=== PATIENT | female | born 1995 | race American Indian/Alaskan Native ===

== ENCOUNTER 2019-08-16 08:04 | Emergency (ER) | payer OTHER ==
[2019-08-16 09:03] LABS: Basophils % (Auto) 0.4 % (0.0-1.8); Eosinophils # (Auto) 0.1 K/mm3 (0.0-0.4); Eosinophils % (Auto) 1.3 % (0.0-4.3); Hematocrit 40.2 % (30.3-42.9); Hemoglobin 13.7 gm/dl (10.1-14.3); Lymphocytes # (Auto) 1.5 K/mm3 (1.2-5.4); Lymphocytes % (Auto) 19.9 % (13.4-35.0); Mean Corpuscular HGB Conc 34 % (30-34); Mean Corpuscular Volume 89 fl (79-97); Monocytes # (Auto) 0.4 K/mm3 (0.0-0.8); Monocytes % (Auto) 5.3 % (0.0-7.3); Platelet Count 279 K/mm3 (140-440); Red Blood Count 4.55 M/mm3 (3.65-5.03); Red Cell Distribution Width 15.5 % (13.2-15.2)
[2019-08-16 09:28] LABS: BUN/Creatinine Ratio 10; Blood Urea Nitrogen 9 mg/dL (7-17); Calcium 9.9 mg/dL (8.4-10.2); Hemolysis Index 22
[2019-08-16] MEDS ORDERED: LIDOCAINE (1%) 10 MG/1 ML VIAL 20 ML MDV INFILTRATI ONE ×2 (09:42→10:10)
--- NOTE | 2019-08-16 09:46 | Emergency Department Report ---
ED Fever HPI - General Chief Complaint: Headache Stated Complaint: MIGRANE/FEVER/CHILLS/EYES WATERY Time Seen by Provider: 08/16/19 09:35 Source: patient Exam Limitations: no limitations - History of Present Illness Initial Comments: Nesha is a 23 yo female with hx of meningitis who presents with fever, chills, headache, neck pain, back pain for 3 days. She has photophobia, severe 10/10 headache. Global throbbing headache. Pain is worse with she bends over. 1-2 years ago, she was diagnosed with meningitis at hospital in [place]. Denies cough or chest pain. Timing/Duration: other (3 days) Associated Symptoms: headache, other (Neck pain) ED Review of Systems ROS: Stated complaint: MIGRANE/FEVER/CHILLS/EYES WATERY Other details as noted in HPI Comment: All other systems reviewed and negative Constitutional: chills, fever, malaise Respiratory: denies: cough, shortness of breath Neurological: headache ED Past Medical Hx - Past Medical History Previous Medical History?: Yes Additional medical history: Hx of meningitis - Surgical History Past Surgical History?: No - Social History Smoking Status: Never Smoker Substance Use Type: Marijuana - Medications Home Medications: Home Medications Medication Instructions Recorded Confirmed Last Taken Type HYDROcodone/APAP 5-325 [[place] 1 each PO Q6HR PRN #10 tablet 08/16/19 Unknown Rx 5/325] Ibuprofen [Motrin 800 MG tab] 800 mg PO Q8HR PRN #15 tablet 08/16/19 Unknown Rx ED Physical Exam - General Limitations: No Limitations General appearance: alert, in no apparent distress, other (Squinting due to photophobia, she moves her neck briskly fluidly while talking) - Head Head exam: Present: atraumatic, normocephalic - Eye Eye exam: Present: normal appearance - ENT ENT exam: Present: mucous membranes moist - Neck Neck exam: Present: normal inspection, full ROM. Absent: tenderness, meningismus - Respiratory Respiratory exam: Present: normal lung sounds bilaterally, chest wall tenderness. Absent: respiratory distress, wheezes, rales, rhonchi - Cardiovascular Cardiovascular Exam: Present: regular rate, normal rhythm, normal heart sounds. Absent: systolic murmur, diastolic murmur, rubs, gallop - GI/Abdominal GI/Abdominal exam: Present: soft, normal bowel sounds. Absent: distended, tenderness, guarding, rebound - Extremities Exam Extremities exam: Present: normal inspection - Neurological Exam Neurological exam: Present: alert, oriented X3 - Psychiatric Psychiatric exam: Present: normal affect, normal mood - Skin Skin exam: Present: warm, dry, intact, normal color. Absent: rash ED Course Vital Signs 08/16/19 08/16/19 08/16/19 08:23 09:30 09:45 Temperature 100.5 F H Pulse Rate 117 H 94 H 90 Respiratory 18 13 23 Rate Blood Pressure 118/75 122/83 O2 Sat by Pulse 100 99 93 Oximetry 08/16/19 08/16/19 08/16/19 10:00 10:16 10:46 Temperature Pulse Rate 91 H 100 H Respiratory 15 22 23 Rate Blood Pressure 131/86 131/86 123/91 O2 Sat by Pulse 92 99 96 Oximetry - Lumbar Puncture Consent Obtained: written consent Time Out Performed: Yes Indication for Procedure: headache, fever work up Patient Position: Sitting Upright/Leaning F Skin Prep: Povidone-Iodine 1% Local Anesthetic Used: Lidocaine 1% Amount of anesthesia used (mls): 25 Spinal Needle Gauge: 20G Spinal Needle Length: 3.5in Interspace Used: L3-L4 Fluid Initially Obtained: clear Complications: none Patient Tolerated Procedure: well ED Medical Decision Making - Lab Data Result diagrams: 08/16/19 08:26 08/16/19 08:26 Laboratory Results - last 24 hr 08/16/19 08/16/19 08/16/19 08:26 08:26 08:26 WBC 7.7 RBC 4.55 Hgb 13.7 Hct 40.2 MCV 89 MCH 30 MCHC 34 RDW 15.5 H Plt Count 279 Lymph % (Auto) 19.9 [place] % (Auto) 5.3 Eos % (Auto) 1.3 Baso % (Auto) 0.4 Lymph # 1.5 [place] # 0.4 Eos # 0.1 Baso # 0.0 Seg Neutrophils % 73.1 H Seg Neutrophils # 5.6 Sodium 135 L Potassium 4.1 Chloride 98.7 Carbon Dioxide 19 L Anion Gap 21 BUN 9 Creatinine 0.9 Estimated GFR > 60 BUN/Creatinine Ratio 10 Glucose 129 H Calcium 9.9 HCG, Qual Negative CSF Appearance CSF Color CSF WBC CSF RBC CSF Seg Neutrophils CSF Lymphocytes % CSF Reactive Lymphs CSF Monocytes % CSF Eosinophils % CSF Basophils CSF Pathologist Review CSF Glucose CSF Total Protein 08/16/19 08/16/19 08/16/19 10:20 10:20 10:20 WBC RBC Hgb Hct MCV MCH MCHC RDW Plt Count Lymph % (Auto) [place] % (Auto) Eos % (Auto) Baso % (Auto) Lymph # [place] # Eos # Baso # Seg Neutrophils % Seg Neutrophils # Sodium Potassium Chloride Carbon Dioxide Anion Gap BUN Creatinine Estimated GFR BUN/Creatinine Ratio Glucose Calcium HCG, Qual CSF Appearance Clear Clear CSF Color Colorless Colorless CSF WBC 469 583 CSF RBC 375 150 CSF Seg Neutrophils 2 0 CSF Lymphocytes % 91 95 CSF Reactive Lymphs 2 2 CSF Monocytes % 3 0 CSF Eosinophils % 1 3 CSF Basophils 1 0 CSF Pathologist Review C C CSF Glucose 54 CSF Total Protein 99 - Medical Decision Making Clinical impression: Viral meningitis evidenced by lymphocytic predominance in CSF cell count. Patient appears well and nontoxic. Normal CSF glucose content. Increase protein CSF content. Patient understands to return to the emergency department if symptoms progress. Patient understands that I will contact her if spinal fluid culture results become positive. Headache improved with IM Toradol and [place]. Prescribed ibuprofen and [place] for pain. She understands supportive care instructions. Critical care attestation.: If time is entered above; I have spent that time in minutes in the direct care of this critically ill patient, excluding procedure time. ED Disposition Clinical Impression: Viral meningitis Disposition: [id number] TO HOME OR SELFCARE Is pt being admited?: No Does the pt Need Aspirin: No Condition: Stable Instructions: Viral Meningitis (ED) Prescriptions: Ibuprofen [Motrin 800 MG tab] 800 mg PO Q8HR PRN #15 tablet PRN Reason: Pain , Severe (7-10) HYDROcodone/APAP 5-325 [[place] 5/325] 1 each PO Q6HR PRN #10 tablet PRN Reason: Pain Referrals: [facility] [Other] - 3-5 Days
[2019-08-16] MEDS ORDERED: ONDANSETRON 4 MG ODT TAB PO ONE (10:47)
[2019-08-16] MEDS ORDERED: KETOROLAC 30 MG/1 ML INJ IM ONE (10:47)
[2019-08-16] MEDS ORDERED: HYDROcodone/ACETAMINOPHEN 5-325 MG TAB PO ONE ×2 (10:47→14:15)
[2019-08-16 11:30] LABS: Glucose,CSF 54 mg/dL
[2019-08-16 13:41] LABS: Appearance,CSF Clear; Red Blood Cell,CSF 375 /mm3 (0-0); White Blood Cell,CSF 469 /mm3 (1-10)
[2019-08-16 13:42] LABS: Basophils CSF 1 %
[2019-08-16 13:53] LABS: Appearance,CSF Clear; Red Blood Cell,CSF 150 /mm3 (0-0); White Blood Cell,CSF 583 /mm3 (1-10)
[2019-08-16 13:54] LABS: Basophils CSF 0 %
[2019-08-16] MEDS ORDERED: IBUPROFEN 800 MG TAB PO ONE (14:15)
[2019-08-16 16:30] VITALS: BP 122/77
== END 2019-08-16 14:35 | disposition home or self-care (01) ==
LOC: ED 08:04
DX: A87.8 Other viral meningitis (principal); F12.10 Cannabis abuse, uncomplicated
CPT/HCPCS: 36415; 62270; 80048; 82947; 84160; 84703; 85025; 87040; 87116; 89051; 96372; 99283; J1885; Q0162